=== PATIENT | male | born 1970 | race Caucasian/White ===

== ENCOUNTER 2018-05-27 08:23 | Emergency (ER) | payer OTHER ==
[2018-05-27] MEDS ORDERED: Acetaminophen/oxyCODONE 325-5 MG Tab PO STA (09:51)
--- NOTE | 2018-05-27 09:57 | EDM.PDOC ---
ED HPI GENERAL MEDICAL PROBLEM - General Chief Complaint: Lower Extremity Injury/Pain Stated Complaint: LT KNEE AND LEG PAIN Time Seen by Provider: 05/27/18 08:23 Source of Information: Reports: Patient, Family History Limitations: Reports: No Limitations - History of Present Illness INITIAL COMMENTS - FREE TEXT/NARRATIVE: 47 y.o.w.m came to the ed after he twisted his left knee while getting off a truck. He is not able to extend and flex his left knee in full since and his left knee is swollen. He is not able to bear weight on his left leg. No other acute medical issues. BP 150/91 RR 20 Pulse ox 98% on RA Temp 36.8 Pulse 78 Onset Date: 05/26/18 Onset Time: 17:00 Duration: Day(s):, Getting Worse, Intermittent Location: Reports: Lower Extremity, Left Quality: Reports: Dull, Pressure Severity: Moderate Improves with: Reports: Rest Worsens with: Reports: Movement Context: Reports: Trauma (twisted right knee) left leg Pain Score (Numeric/FACES): 5 - Related Data Allergies Allergy/AdvReac Type Severity Reaction Status Date / Time No Known Allergies Allergy Verified 05/27/18 08:32 Home Meds: Home Meds Acetaminophen/oxyCODONE [Percocet 325-5 MG] 1 each PO Q6HR PRN #16 tab 05/27/18 [Rx] Levothyroxine 25 mcg PO BEDTIME 05/27/18 [History] Omeprazole 20 mg PO DAILY 05/27/18 [History] Warfarin Sodium [Coumadin] 10 mg PO SUTUTHSA 05/27/18 [History] Warfarin Sodium [Coumadin] 12.5 mg PO MOWEFR 05/27/18 [History] Review of Systems - Review of Systems Review Of Systems: See Below Constitutional: Reports: No Symptoms Eyes: Reports: No Symptoms Ears: Reports: No Symptoms Nose: Reports: No Symptoms Mouth/Throat: Reports: No Symptoms Respiratory: Reports: No Symptoms Cardiovascular: Reports: No Symptoms GI/Abdominal: Reports: No Symptoms Genitourinary: Reports: No Symptoms Musculoskeletal: Reports: Joint Pain (left knee) Skin: Reports: No Symptoms Neurological: Reports: No Symptoms Psychiatric: Reports: No Symptoms ED EXAM, GENERAL - Physical Exam Exam: See Below Exam Limited By: No Limitations General Appearance: Alert, WD/WN, Mild Distress Eye Exam: Bilateral Eye: Normal Inspection Ears: Normal External Exam Ear Exam: Bilateral Ear: Auricle Normal Nose: Normal Inspection Throat/Mouth: Normal Inspection Head: Atraumatic, Normocephalic Neck: Normal Inspection, Supple, Non-Tender Respiratory/Chest: No Respiratory Distress, Lungs Clear, Normal Breath Sounds Cardiovascular: Normal Peripheral Pulses, Regular Rate, Rhythm, No Edema, No Gallop, No Murmur, No Rub Peripheral Pulses: 1+: Brachial (L) GI/Abdominal: Normal Bowel Sounds, Soft, Non-Tender, No Organomegaly, No Abnormal Bruit, No Mass (Male) Exam: Deferred Rectal (Males) Exam: Deferred Back Exam: Normal Inspection, Full Range of Motion Extremities: Joint Swelling (left knee), Limited Range of Motion (left knee) Neurological: Alert, Oriented, CN II-XII Intact, Normal Cognition, Normal Gait, No Motor/Sensory Deficits Psychiatric: Normal Affect, Normal Mood Skin Exam: Warm, Dry, Intact, Normal Color, No Rash Lymphatic: No Adenopathy Course - Vital Signs Text/Narrative:: 47 y.o.w.m came to the ed after he twisted his left knee while getting off a truck. He is not able to extend and flex his left knee in full since and his left knee is swollen. He is not able to bear weight on his left leg. No other acute medical issues. BP 150/91 RR 20 Pulse ox 98% on RA Temp 36.8 Pulse 78 47 Y.O WM with left kneepain, swelling Imaging: Left knee 3 views: NAD, official report is pending Impression: Left knee sprain, poss meniscus lesion left knee Tx: ICE, Percoset 10.30 am Consultation: Dr Gomez, Ortho, [facility]:Please follow up with ortho at [facility] Dr. Goldman or any other orthopedic surgeon this week, call for an appointment at [facility]. 11.02 pm Consultation: Dr. Alvarado was here, recommededing MRI and then F/U with Dr. Alvarado Plan: MRI of left knee Tuesday 10.30 am D/C with instructions Last Recorded V/S: Last Vital Signs Temp 36.8 C 05/27/18 08:23 Pulse 78 05/27/18 11:05 Resp 18 05/27/18 11:05 BP 156/87 H 05/27/18 11:05 Pulse Ox 97 05/27/18 11:05 - Orders/Labs/Meds Orders: Active Orders 24 hr Category Date Time Status Immobilizer [RC] ASDIRECTED Care 05/27/18 09:52 Active Knee 3V Lt [CR] Stat Exams 05/27/18 08:57 Taken Ice Bag [Ice Therapy] [OM.PC] Routine Oth 05/27/18 08:57 Ordered Labs: Laboratory Tests 05/27/18 05/27/18 05/27/18 Range/Units 09:25 09:25 09:25 WBC 9.9 (4.5-12.0) X10-3/uL RBC 4.79 (4.30-5.75) x10(6)uL Hgb 14.6 (11.5-15.5) g/dL Hct 43.5 (30.0-51.3) % MCV 90.8 (80-96) fL MCH 30.5 (27.7-33.6) pg MCHC 33.6 (32.2-35.4) g/dL RDW 13.2 (11.5-15.5) % Plt Count 248 (125-369) X10(3)uL MPV 7.1 L (7.4-10.4) fL Neut % (Auto) 77.0 (46-82) % Lymph % (Auto) 14.7 (13-37) % Kane % (Auto) 6.5 (4-12) % Eos % (Auto) 1 (1.0-5.0) % Baso % (Auto) 1 (0-2) % Neut # (Auto) 7.6 (1.6-8.3) # Lymph # (Auto) 1.5 (0.6-5.0) # Kane # (Auto) 0.6 (0.0-1.3) # Eos # (Auto) 0.1 (0.0-0.8) # Baso # (Auto) 0.1 (0.0-0.2) # PT 20.4 H (8.7-11.1) INR 2.12 H (0.89-1.13) Sodium 133 L (135-145) mmol/L Potassium 3.9 (3.5-5.3) mmol/L Chloride 100 (100-110) mmol/L Carbon Dioxide 26 (21-32) mmol/L BUN 14 (7-18) mg/dL Creatinine 0.9 (0.70-1.30) mg/dL Est Cr Clr Drug Dosing 86.37 mL/min Estimated GFR (MDRD) > 60 (>60) BUN/Creatinine Ratio 15.6 (9-20) Glucose 215 H (80-116) mg/dL Calcium 8.5 L (8.6-10.2) mg/dL Meds: Medications Discontinued Medications Generic Name Dose Route Start Last Admin Trade Name Freq PRN Reason Stop Dose Admin Oxycodone/Acetaminophen 1 tab 05/27/18 09:51 05/27/18 09:57 Percocet 325-5 Mg PO 05/27/18 09:52 1 tab ONETIME STA Administration Departure - Departure Time of Disposition: 11:36 Disposition: Home, Self-Care 01 Condition: Good Clinical Impression: Knee pain, left Qualifiers: Chronicity: acute Qualified Code(s): M25.562 - Pain in left knee - Discharge Information Prescriptions: Acetaminophen/oxyCODONE [Percocet 325-5 MG] 1 each PO Q6HR PRN #16 tab PRN Reason: for severe pain only Instructions: Knee Pain, Adult, Acetaminophen; Oxycodone tablets Referrals: Tayo Perry MD [Primary Care Provider] - Forms: ED Department Discharge Additional Instructions: Rest, Ice and elevation, Take Motrin/percocet for pain, use crutches, Please follow up with ortho at [facility] Dr. Goldman or any other orthopedic surgeon on Tuesday, call for an appointment at the [facility]. Please come back if your symptoms get worse acutely. MRI of left knee Tuesday 10.30 am - My Orders Last 24 Hours: My Active Orders 05/27/18 08:57 Knee 3V Lt [CR] Stat Ice Bag [Ice Therapy] [OM.PC] Routine 05/27/18 09:52 Immobilizer [RC] ASDIRECTED - Assessment/Plan Last 24 Hours: My Active Orders 05/27/18 08:57 Knee 3V Lt [CR] Stat Ice Bag [Ice Therapy] [OM.PC] Routine 05/27/18 09:52 Immobilizer [RC] ASDIRECTED
== END 2018-05-27 11:45 | disposition home or self-care (01) ==
LOC: FB.ED 08:23
DX: M25.562 Pain in left knee (principal); Z79.899 Other long term (current) drug therapy
CPT/HCPCS: 36415; 73562-LT; 80048; 85025; 85610; 99283; A9270-GY